=== PATIENT | female | born 1945 | race Caucasian/White ===

== ENCOUNTER → 2016-05-22 | Outpatient (CLI) | payer BC ==
[~2016-05-22] MED LIST: ALEN35TA2 PO; ASPI81TA28 PO; CALC-220 PO; CHOL1000 PO; COEN100C15 PO; COLON HEALTH PO; CYAN500T13 PO; FRRG PO; LORA-554 PO; MAGN400T6 PO; MULT-506 PO; NEXIUM PO; OMEG10007 PO; PSEUDOEPHEDRINE PO; REDCAP2 PO; WARF2TAB PO; ZINC PO
--- NOTE | 2016-05-22 12:51 | MAMMOGRAPHY REPORT ---
BILATERAL DIGITAL SCREENING MAMMOGRAM WITH CAD: 05/22/2016 CLINICAL HISTORY: Routine screening. Patient has no complaints. TECHNIQUE: Current study was also evaluated with a Computer Aided Detection (CAD) system. Bilatera l CC and MLO views were obtained. COMPARISON: Comparison is made to exams dated: 11/29/2012 mammogram, 10/02/2011 mammogram, 10/02/2010 mammogram, and 09/18/2010 mammogram - [facility]. BREAST COMPOSITION: The tissue of both breasts is heterogeneously dense, which may obscure small ma sses. FINDINGS: No suspicious masses, calcifications, or areas of architectural distortion are noted in e ither breast. There has been no significant interval change compared to prior exams. IMPRESSION: ACR BI-RADS CATEGORY 1: NEGATIVE There is no mammographic evidence of malignancy. A 1 year screening mammogram is recommended. The p atient will receive written notification of the results. Approximately 10% of breast cancers are not detected with mammography. A negative mammographic repor t should not delay biopsy if a clinically suggestive mass is present. Lou Galeana M.D. ah/:05/22/2016 10:37:41 Marketing Officer: Cecelia Ibrahim [facility] letter sent: Normal 1/2 BI-RADS Code: ACR BI-RADS Category 1: Negative
== END | disposition home or self-care (01) ==
LOC: C.MAMM 09:01
PROVIDERS: ATTEND Nurse Practitioner Family
DX: Z12.31 Encounter for screening mammogram for malignant neoplasm of breast (principal)

== ENCOUNTER → 2016-08-07 | Outpatient (CLI) | payer BC ==
[2016-08-07 13:24] LABS: URINE APPEARANCE CLEAR (CLEAR); URINE BILIRUBIN NEG (NEG); URINE COLOR YELLOW; URINE NITRITE NEG (NEG); URINE PH 7.5 (4.5-7.5); URINE SPECIFIC GRAVITY 1.005 (1.000-1.030); UROBILINOGEN NEG (NEG)
[2016-08-07 13:30] LABS: MANUAL MICROSCOPIC REQUIRED? NO; REVIEW REQ? NO
[2016-08-07 13:40] LABS: BLOOD UREA NITROGEN 19 mg/dl (7-18); BUN/CREATININE RATIO 15.7 (10-20); CALCIUM 10.2 mg/dl (8.5-10.1); CARBON DIOXIDE 30 mmol/L (21-32); CHLORIDE 105 mmol/L (98-107); GLUCOSE 87 mg/dl (70-99); MAGNESIUM 2.1 mg/dl (1.8-2.4); PHOSPHORUS 3.2 mg/dl (2.5-4.9); POTASSIUM 4.4 mmol/L (3.5-5.1); SODIUM 140 mmol/L (136-145)
[2016-08-07 13:58] LABS: URINE TOTAL PROTEIN < 5.0 mg/dl (0-11.9)
== END | disposition home or self-care (01) ==
LOC: C.LAB1850 11:51
PROVIDERS: ATTEND Internal Medicine Nephrology
DX: N18.3 Chronic kidney disease, stage 3 (moderate) (principal); E55.9 Vitamin D deficiency, unspecified

== ENCOUNTER → 2016-11-17 | Outpatient (CLI) | payer BC | END | disposition home or self-care (01) | LOC: C.MAMM 14:40 | PROVIDERS: ATTEND Nurse Practitioner Family | DX: Z13.820 Encounter for screening for osteoporosis (principal); M85.852 Other specified disorders of bone density and structure, left thigh ==

== ENCOUNTER → 2016-12-17 | Outpatient (CLI) | payer BC ==
--- NOTE | 2016-12-17 11:07 | DIAGNOSTIC IMAGING REPORT ---
AP PELVIS AND FROG LEG LATERAL VIEWS OF THE BILATERAL HIPS CLINICAL HISTORY: BILATERAL HIP PAIN COMPARISON STUDY: Pelvis 02/18/2015. FINDINGS: There is again noted a right total hip arthroplasty. The hardware appears intact. No abnormal periprosthetic lucency. No fracture or dislocation within the pelvis or hips. Soft tissues are unremarkable. Mild osteoarthritis within the bilateral sacroiliac joints and left hip. IMPRESSION: 1. No acute fracture or dislocation within the pelvis or hips. 2. Right total arthroplasty. The hardware is intact. 3. Mild osteoarthritis within the left hip. Electronically signed by: Robert Vides M.D. 12/17/2016 11:06 AM Dictated Date/Time: 12/17/2016 11:03 AM
== END | disposition home or self-care (01) ==
LOC: C.RDSM 13:10
PROVIDERS: ATTEND Physician Assistant
DX: Z96.641 Presence of right artificial hip joint (principal)

== ENCOUNTER 2020-12-11 06:49 | Observation (INO) ==
--- NOTE | 2020-11-15 14:29 | PAT Medication Instructions ---
Medication Instructions Date of Service November 15, 2020 Home Medications multivitamin 1 tab PO QAM pseudoephedrine HCl 30 mg tablet (Sudafed) 30 mg PO DIRECTED PRN lactobacillus combination no.4 3 billion cell capsule (Probiotic) 0 mmu cells PO BID omega-3 fatty acids 1,000 mg capsule (Fish Oil Concentrate) 1,000 mg PO QAM aspirin 81 mg tablet,delayed release 81 mg PO QAM cholecalciferol (vitamin D3) 25 mcg (1,000 unit) tablet (Vitamin D3) 25 mcg PO QAM acetaminophen 500 mg capsule 1,000 mg PO Q6H PRN fexofenadine 180 mg tablet 180 mg PO DAILY PRN ibuprofen 200 mg tablet 600 mg PO QAM ASK your surgeon for instructions ibuprofen 200 mg tablet 600 mg PO QAM STOP taking 2 weeks before surgery (or as soon as possible if surgery is within 2 weeks) omega-3 fatty acids 1,000 mg capsule (Fish Oil Concentrate) 1,000 mg PO QAM DO NOT take the morning of surgery multivitamin 1 tab PO QAM pseudoephedrine HCl 30 mg tablet (Sudafed) 30 mg PO DIRECTED PRN lactobacillus combination no.4 3 billion cell capsule (Probiotic) 0 mmu cells PO BID cholecalciferol (vitamin D3) 25 mcg (1,000 unit) tablet (Vitamin D3) 25 mcg PO QAM fexofenadine 180 mg tablet 180 mg PO DAILY PRN Take morning of surgery With a small sip of water, OTHERWISE NOTHING TO EAT OR DRINK AFTER MIDNIGHT: acetaminophen 500 mg capsule 1,000 mg PO Q6H PRN (okay to take up to 4 hours prior to surgery if needed) Take evening before surgery pseudoephedrine HCl 30 mg tablet (Sudafed) 30 mg PO DIRECTED PRN (if needed) lactobacillus combination no.4 3 billion cell capsule (Probiotic) 0 mmu cells PO BID acetaminophen 500 mg capsule 1,000 mg PO Q6H PRN (if needed) fexofenadine 180 mg tablet 180 mg PO DAILY PRN (if needed) Other Notes If you have any questions please call us at [phone] or [phone] or [phone] or [phone]
--- NOTE | 2020-11-19 13:25 | Anesthesiology Consultation ---
Date of Service November 19, 2020 Assessment & Plan (1) Encounter for pre-operative examination: - COVID screening: Per assessment on 11/19: Travel screen negative, no known COVID-19 positive contacts or current COVID-19 related symptoms. Surgeon arranging preop COVID testing. Awaiting results. - S/P Colonoscopy (09/18/20): MAC at [facility] Chart Review Chart Review: Acceptable Risk for Surgery (pending surgeon-ordered PCP clearance) and Patient seen in Pre Admission Testing Teaching & Discussion Pre-Anesthesia Teaching/Discussion Notes: Instructed NPO after midnight before surgery,except medications with 15 cc of water. Medication instructions provided according to the PAT guidelines. History Surgery Operation Date: 12/11/20 07:00 Proposed Procedures p Left Total Hip Arthroplasty - Senthil Matos MD Height/Weight Height: 5 ft 3 in Weight: 66 kg Allergies Allergy/AdvReac Type Severity Reaction Status Date / Time isosorbide Allergy Intermediate Rash Verified 11/19/20 13:19 citalopram Allergy Mild Rash Verified 11/19/20 13:19 raloxifene AdvReac Severe Leg pain Verified 11/19/20 13:19 caffeine AdvReac Intermediate Heart Verified 11/19/20 13:19 palpitations ENVIRONMENTAL Allergy Intermediate Itchy Uncoded 11/19/20 13:19 eyes, sneezing, congestion Medications Home Medications Medication Instructions Recorded Confirmed Last Taken multivitamin 1 tab PO QAM 03/20/18 11/13/20 09/16/20 pseudoephedrine HCl 30 mg tablet 30 mg PO DIRECTED PRN 03/20/18 11/13/20 09/16/20 (Sudafed) lactobacillus combination no.4 3 0 mmu cells PO BID 09/04/19 11/13/20 09/16/20 billion cell capsule (Probiotic) omega-3 fatty acids 1,000 mg 1,000 mg PO QAM 06/26/20 11/13/20 09/16/20 capsule (Fish Oil Concentrate) aspirin 81 mg tablet,delayed 81 mg PO QAM 06/27/20 11/13/20 09/16/20 release cholecalciferol (vitamin D3) 25 25 mcg PO QAM 09/12/20 11/13/20 09/16/20 mcg (1,000 unit) tablet (Vitamin D3) acetaminophen 500 mg capsule 1,000 mg PO Q6H PRN 11/13/20 11/13/20 Unknown fexofenadine 180 mg tablet 180 mg PO DAILY PRN 11/13/20 11/13/20 Unknown ibuprofen 200 mg tablet 600 mg PO QAM 11/13/20 11/13/20 Unknown Past Medical History Medical History Chronic anemia Chronic cough dx as r/t allergies/GERD GERD (gastroesophageal reflux disease) Controlled Hiatal hernia History of gastric ulcer Kidney disease Creatinine WNL on most recent 11/2020 labs Liver cyst Migraine Hx Osteoarthritis Osteopenia Spinal stenosis TMJ (temporomandibular joint disorder) Remote locking (no locking x 30 years) Exercise / Class Metabolic Activity II 4-5 Yardwork/Stairs/Walk up hill (one FS (no CP, no SOB)) Past Family History Family History Mother Diabetes Other Allergies Asthma Cancer Family history non-contributory Heart disease No family history of adverse response to anesthesia Denies family history of Tuberculosis Emphysema, unspecified Lung disease Past Surgical History Surgical History History of appendectomy History of cardiac catheterization 2004 > no stents History of cholecystectomy History of colonoscopy Colonoscopy (09/18/20): MAC at [facility] History of esophageal dilatation History of esophagogastroduodenoscopy (EGD) History of total hip arthroplasty Right History of tubal ligation Past Anesthesia History No Hx of Anesthesia Complications and No Family Hx of Anesthesia Complications History of PONV No Hx of PONV and No Hx of Motion Sickness Social History Smoking Status: Former smoker Do You Dip or Chew Tobacco: No Smoking End Date: Quit 1991 Hx Alcohol Use: Yes Alcohol type: beer alcohol intake frequency: a few times a month Hx Substance Use: No substance use type: does not use Review of Systems Chronic dry cough, unchanged- dx as r/t reflux/allergies. Patient denies chest pain, shortness of breath, dyspnea on exertion, fever, chills, wheezing, palpitations. Physical Exam Vital Signs VITALS BP 130/75 P 73 TEMP 97.8 SP02 98%RA RESP 16 PHYSICAL Full cervical extension range of motion. Full TMJ range of motion. TMD 3 finger breaths Mallampati Score 2 Dentition: lower front missing Lungs: clear throughout to auscultation Cardiac: regular rate and rhythm, no murmurs noted Spine: normal Carotid arteries: negative bruit Extremities: no edema Lab Results Anesthesia Preop Results Results Anesthesia Widget: WBC 6.93 K/uL (4.8-10.8) 11/19/20 Hgb 10.4 g/dL (12.0-16.0) L 11/19/20 Hct 32.1 % (37-47) L 11/19/20 Plt 475 K/uL (130-400) H 11/19/20 Na 138 mmol/L (136-145) 11/19/20 K 3.7 mmol/L (3.5-5.1) 11/19/20 Cl 108 mmol/L (98-107) H 11/19/20 CO2 26 mmol/L (21-32) 11/19/20 BUN 22 mg/dl (7-18) H 11/19/20 Creat 1.13 mg/dl (0.6-1.2) 11/19/20 Glucose Level 119 mg/dl (70-99) H 11/19/20 PT 10.2 Seconds (9.0-12.0) 11/19/20 PTT 26.6 Seconds (21.0-31.0) 11/19/20 INR 1.0 (0.9-1.1) 11/19/20 Urine Color Yellow 11/19/20 Urine Appearance Cloudy (Clear) A 11/19/20 Urine pH 6.5 (4.5-7.5) 11/19/20 Urine Specific [place] 1.009 (1.000-1.030) 11/19/20 Urine Protein Negative (Negative) 11/19/20 Urine Glucose (UA) Negative (Negative) 11/19/20 Urine Ketones Negative (Negative) 11/19/20 Urine Blood Trace (Negative) H 11/19/20 Urine Nitrite Negative (Negative) 11/19/20 Urine Bilirubin Negative (Negative) 11/19/20 Urine Urobilinogen Negative (Negative) 11/19/20 Urine Leukocyte Esterase Negative (Negative) 11/19/20 Urine WBC (Auto) 1-5 /hpf (0-5) 11/19/20 Urine RBC (Auto) 0-4 /hpf (0-4) 11/19/20 Urine Hyaline Casts (Auto) 0 /lpf (0-5) 11/19/20 Urine Epithelial Cells (Auto) 5-10 /lpf (0-5) H 11/19/20 Urine Bacteria (Auto) 1+ (Negative) H 11/19/20 Urine Yeast Not Reportable 11/19/20 Blood Type O Negative 11/19/20 Antibody Screen NEGATIVE 11/19/20 Lab Comments: Chronic anemia with comparison hgb 05/22/20 10.3. Preop labs stable at 10.4. Testing Electrocardiogram Date: 11/19/20 NSR at 68bpm. unconfirmed report. Chest X-Ray Date: 03/22/20 FINDINGS: The heart is normal in size. There is no failure. There is no focal pulmonary consolidation. There are no pleural effusions. There is a gas containing retrocardiac opacity consistent with a hiatal hernia. IMPRESSION: Hiatal hernia. No active disease in the chest.
--- NOTE | 2020-12-03 10:59 | History & Physical Report ---
Date of Service December 03, 2020 Assessment & Plan (1) Primary osteoarthritis of left hip: Plan: t this time, she is scheduled for an elective left total hip arthroplasty with Dr. Matos on December 11, 2020. Risks and complications of the procedure were explained to the patient and include, but are not limited to infection, pain, bleeding, scarring, nerve and blood vessel damage, wound problems, weakness, stiffness, incomplete relief of symptoms, tendon or ligament injury, leg length discrepancy, dislocation risks, fracture, hardware failure, loosening or wear, blood clots, embolisms, heart attack, stroke, and . All questions were answered and informed consent will be obtained at the time of her surgery. She was instructed to be n.p.o. the night before surgery as well as to call the day ahead for her surgical time. She is aware of the COVID-19 risk, is currently asymptomatic of any COVID-19 symptoms, and will undergo COVID-19 testing on December 09, 2020, in preparation for her surgery. She was instructed on usage of CHG cloths prior to surgery. Postoperative course was discussed. She would like to go home with home health and physical therapy if necessary. She does have a cane and a walker to use at home. She will be prescribed p ostoperative pain medication at the time of her surgery. All questions were answered. She knows to call with any further problems, questions, or concerns. She will have preadmission testing later today in which we will obtain a preoperative CBC, BMP, PT, PTT, UA and culture if necessary, EKG, and chest x- ray. All questions were answered. History of Present Illness Chief Complaint: Left hip pain. Primary Care Provider: ABBIE Palmer The patient is a pleasant 75-year-old female who is here today with her daughter for a preoperative history and physical. She is scheduled to have a left total hip arthroplasty by Dr. Matos on December 11, 2020. She has been having left hip pain for many months and had a right total hip replacement, which has been successful, approximately 5 years ago. She started having worsening pain over the last 6 months to the point where she has pain on a daily basis. She does need to use a cane to assist with ambulation. She states that most of her pain is on the inner aspect of her leg and her groin. She did have an adductor injection of cortisone, which only helped temporarily. She also was referred to Physical Therapy with no significant relief. She had an MRI of her left hip. Her MRI showed significant osteoarthritic change with loss of articular cartilage of the femoral head with almost an inch in diameter with significant edema in the femoral head suggesting AVN with no evidence of fracture. Due to her progressively worsening symptoms and failure of conservative treatment which consisted of cortisone injections, outpatient physical therapy, and oral anti-inflammatories, she wishes to proceed with an elective left total hip replacement. Allergies Allergy/AdvReac Type Severity Reaction Status Date / Time isosorbide Allergy Intermediate Rash Verified 11/19/20 13:19 citalopram Allergy Mild Rash Verified 11/19/20 13:19 raloxifene AdvReac Severe Leg pain Verified 11/19/20 13:19 caffeine AdvReac Intermediate Heart Verified 11/19/20 13:19 palpitations ENVIRONMENTAL Allergy Intermediate Itchy Uncoded 11/19/20 13:19 eyes, sneezing, congestion Home Medications Medication Instructions Recorded Confirmed Type multivitamin 1 tab PO QAM 03/20/18 11/13/20 History pseudoephedrine HCl 30 mg tablet 30 mg PO DIRECTED PRN 03/20/18 11/13/20 History (Sudafed) lactobacillus combination no.4 3 0 mmu cells PO BID 09/04/19 11/13/20 History billion cell capsule (Probiotic) omega-3 fatty acids 1,000 mg 1,000 mg PO QAM 06/26/20 11/13/20 History capsule (Fish Oil Concentrate) aspirin 81 mg tablet,delayed 81 mg PO QAM 06/27/20 11/13/20 History release cholecalciferol (vitamin D3) 25 25 mcg PO QAM 09/12/20 11/13/20 History mcg (1,000 unit) tablet (Vitamin D3) acetaminophen 500 mg capsule 1,000 mg PO Q6H PRN 11/13/20 11/13/20 History fexofenadine 180 mg tablet 180 mg PO DAILY PRN 11/13/20 11/13/20 History ibuprofen 200 mg tablet 600 mg PO QAM 11/13/20 11/13/20 History Past Med/Surg History Medical History Chronic anemia Chronic cough dx as r/t allergies/GERD GERD (gastroesophageal reflux disease) Controlled Hiatal hernia History of gastric ulcer Kidney disease Creatinine WNL on most recent 11/2020 labs Liver cyst Migraine Hx Osteoarthritis Osteopenia Spinal stenosis TMJ (temporomandibular joint disorder) Remote locking (no locking x 30 years) Surgical History History of appendectomy History of cardiac catheterization 2005 > no stents History of cholecystectomy History of colonoscopy Colonoscopy (09/18/20): MAC at [facility] History of esophageal dilatation History of esophagogastroduodenoscopy (EGD) History of total hip arthroplasty Right History of tubal ligation Family History Mother Diabetes Other Allergies Asthma Cancer Family history non-contributory Heart disease No family history of adverse response to anesthesia Denies family history of Tuberculosis Emphysema, unspecified Lung disease Social History (Updated 11/13/20 @ 11:17 by Mulu Miller RN) Smoking Status: Former smoker Tobacco Type: Cigarettes packs per day: 0.25; Years Smoked: 1; Second Hand Exposure: Yes (SPOUSE SMOKED); Hx Alcohol Use: Yes Alcohol type: beer Hx Substance Use: No Preferred Language: Maldivian Communication Ability: Effective It Sales Consultant Required: No Beliefs That Will Affect Care: None Current Living Situation: Family Current Living Situation Comment: dtr lives with pt current occupational status: retired Feels Safe at Home: Yes Assistive Devices: Cane and Glasses Review of Systems Review of Systems: She denies any recent cough, colds, fevers, chills, or flu- like symptoms. Denies any lightheadedness, dizziness, headaches, migraine, seizures, or syncopal episodes. She states that she did have a slight bit of dizziness yesterday and it only lasted for a few seconds. She states that her eye went cross-eyed and then it went back to normal. She had no change in her vision. She denies any history of metal sensitivity, MRSA, or latex allergy. She denies any chest pain or shortness of breath. Denies any abdominal pain, heartburn, indigestion, nausea, vomiting, diarrhea, or constipation. Denies any numbness or tingling in her left leg. Denies any hearing or vision changes. Denies any dental problems although she recently lost her front tooth with no injury. She states it just became loose and fell out. She denies any history of urinary tract infections, foul-smelling urine, or burning with urination today. Physical Exam Physical Exam: General: She is alert and oriented x3. She is in no acute distress. Well-dressed, well-nourished female. Normal mood and affect. Height 161.5 cm, weight is 66.1 kg, and BMI is 25.34. Vital Signs: Temperature is 36.5 degrees Celsius, blood pressure is 124/82, heart rate is 60 beats per minute, oxygenation on room air is 99%, and pain is 6/10. HEENT: Head; atraumatic, normocephalic. Eyes; extraocular movements intact. Pupils equal, round, and reactive to light. Sclerae are normal. Ears; hearing is grossly normal. TMs are clear with normal light reflex. Nose; nares are patent bilaterally. Throat; oropharynx is clear. Mucous membranes are moist. Good dentition. She is missing her front right tooth. Gums are benign. Uvula midline. Neck: Supple. No lymphadenopathy. Nontender to palpation. Full range of motion. Lungs: Clear to auscultation bilaterally. No adventitious sounds. No accessory muscle use. Heart: Regular rate and rhythm. Normal S1 and S2. No murmurs, rubs, or gallops appreciated. Abdomen: Soft, nontender, and nondistended. Normal bowel sounds heard in all 4 quadrants. Musculoskeletal: Exam of her left hip; she has painful range of motion of her left hip with internal and external rotation. She is able to independently straight leg raise. She does ambulate with an antalgic gait with the assistance of a cane. She has no visible obvious asymmetry or deformity. She tolerates hip flexion to 110 degrees. She does have significant groin and lateral leg pain with internal and external rotation of her hip. Range of motion is limited with internal rotation of less than 5 degrees and external rotation to only about 5 to 10 degrees. Gross sensation is intact. Distal pulses are 1+. Skin is healthy with no distal edema. Results & Data Results & Data ([facility]) Diagnostic Findings New x-rays of her left hip were obtained today and show end-stage [id number] arthritis of her left femoroacetabular joint with some subchondral cystic and sclerosis changes as well as osteophyte formation. MRI also noted from July which shows severe end-stage osteoarthritis of her lef t hip. Report is noted.
--- NOTE | 2020-12-11 06:33 | History & Physical Bridge Note ---
Date of Service December 11, 2020 History & Physical Bridge Note I have examined the patient, reviewed the History & Physical and in the interval since the performance of the History & Physical I have noted the following changes of clinical significance:consent obtained/site verified/covid screen negative. no changes noted
[~2020-12-11 06:49] MED LIST changes: -ALEN35TA2 PO; -ASPI81TA28 PO; +BUPIVACAINE 0.5 % 5 MG/1 ML PF 10ML VIAL ONE; -CALC-220 PO; -CHOL1000 PO; -COEN100C15 PO; -COLON HEALTH PO; -CYAN500T13 PO; -FRRG PO; -LORA-554 PO; +LR 500ML BOLUS, THEN 15ML/HR IV SCH; +LR 60ML/HR IV SCH; -MAGN400T6 PO; -MULT-506 PO; -NEXIUM PO; -OMEG10007 PO; -PSEUDOEPHEDRINE PO; -REDCAP2 PO; +ROPIVACAINE 0.5% HCL/PF 150 MG, BUPIVACAINE 0.75% MPF 20 ML, EPINEPHrine 0.15 MG, Ketor... INFIL SCH; +TRANEXAMIC ACID 1,000 MG **IV Pre-op IV SCH; -WARF2TAB PO; -ZINC PO; +ceFAZolin 2000MG 2,000 MG/15 ML SYR IV SCH
[2020-12-11] MEDS ORDERED: MIDAZOLAM HCL 1 MG/ML 2ML VIAL ONE (07:41)
[2020-12-11] MEDS ORDERED: HYDROmorphone INJ 1 MG/ML SYRINGE IV PRN (08:19)
[2020-12-11] MEDS ORDERED: ONDANSETRON INJ 2 MG/ML 2 ML VIAL IV PRN ×2 (08:19→14:52)
[2020-12-11] MEDS ORDERED: ATROPINE SULFATE 0.1 MG/ML 10ML SYR IV PRN (08:19)
[2020-12-11] MEDS ORDERED: ePHEDrine sulfate 50 MG/ML AMP IV PRN (08:19)
[2020-12-11] MEDS ORDERED: ORTHO JOINT ANESTHETIC ONE (09:01)
[2020-12-11] MEDS ORDERED: PROPOFOL IV EMULSION 10 MG/ML 20 ML VIAL IV ONE (09:33)
[2020-12-11] MEDS ORDERED: ePHEDrine sulfate 50 MG/ML SYR ONE (09:56)
[2020-12-11] MEDS ORDERED: PHENYLEPHRINE 100MCG/ML 5ML SYR ONE (09:56)
[2020-12-11] MEDS ORDERED: KETAMINE 50 MG/5 ML SYRINGE ONE (10:33)
--- NOTE | 2020-12-11 11:17 | Operative Report ---
Post Operative Report Pre & Post Diagnosis Operation Date: 12/11/20 08:50 Pre-Op Diagnosis: Left Hip Degenerative Joint Disease Post-Op Diagnosis: Left Hip Degenerative Joint Disease I identified the patient and participated in the time-out.: Yes Procedure Operation Date: 12/11/20 08:50 Actual Procedures p Left Total Hip Arthroplasty--Uncemented(Left) - Senthil Matos MD Surgeon Senthil Matos MD Electric Plater Callie Gonzalez Estimated Blood Loss 150 Findings Consistent with Post-Op Diagnosis see Dr. Matos note Specimens no specimens Description of Procedure see Dr. Matos note I attest to the content of the Intraoperative Record and any orders documented therein. Any exceptions are noted below. Supervising Physician Co-Signing Physician Notes Wes Matos MD
--- NOTE | 2020-12-11 11:19 | Operative Report ---
Post Operative Report Pre & Post Diagnosis Operation Date: 12/11/20 08:50 Pre-Op Diagnosis: Left Hip Degenerative Joint Disease Post-Op Diagnosis: Left Hip Degenerative Joint Disease I identified the patient and participated in the time-out.: Yes Procedure Operation Date: 12/11/20 08:50 Actual Procedures p Left Total Hip Arthroplasty--Uncemented(Left) - Senthil Matos MD Surgeon RAFFY Matos MD Drain Tile Machine Operator Callie Gonzalez PA-C Estimated Blood Loss 150 Findings Consistent with Post-Op Diagnosis see operative report Specimens see operative report Drains none Complications none Disposition Accompanied Patient To Recovery: Yes Indications This 75-year-old female presented to the office with complaints of persisting left hip pain. She had tried conservative care measures without improvement. She elected to proceed with surgical intervention after being educated about potential risks and outcomes. Preoperative imaging was obtained. Description of Procedure Patient was administered a spinal anesthetic and then taken to the operating room where she was given sedation. She was prepped and draped in the usual sterile fashion. Please see Dr. Matos's operative report for specifics of the procedure. I was present for the entire case from initial patient positioning through final wound closure. Assistance was provided in tissue retraction, hemostasis, trial implant placement, final implant placement, and final wound closure. Patient was taken to the recovery room in satisfactory condition. I attest to the content of the Intraoperative Record and any orders documented therein. Any exceptions are noted below.
--- NOTE | 2020-12-11 11:37 | Operative Report (OR) ---
DATE OF PROCEDURE: 12/11/2020. SURGEON: Senthil Matos MD CERTIFIER: Adriana Courtney MD SECOND HARDWARE ENGINEERING MANAGER: Vic Tian PA-C PREOPERATIVE DIAGNOSIS: Osteoarthritis with hip dysplasia, left hip. POSTOPERATIVE DIAGNOSIS: Osteoarthritis with hip dysplasia, left hip. OPERATION PERFORMED: Noncemented left total hip replacement. PERIOPERATIVE SITUATION: Medically cleared female with intractable hip pain, x-rays reveal end-stage disease, has dysplasia as well as arthritis. Wants to proceed with surgical treatment. She underst ands the risks and consequences, had the other side done. Understands the risk for dislocation, DVT, PE, leg length inequality, etc. She was cleared by hematology for chronically anemic status. She m ay require transfusions or EPO. She understands that. DEEP VENOUS THROMBOSIS PROPHYLAXIS: Per protocol. DESCRIPTION OF PROCEDURE: The patient was appropriately identified, site verified, consent verified. Antibiotics were confirmed as being given. The left lower extremity was prepped and draped in usua l routine fashion with the patient in the right lateral decubitus position. The posterolateral appro ach to the hip was then made. Sharp dissection was carried through the skin, blunt dissection throug h the fascia. The IT band identified. This was then incised under direct vision. The retractor was then placed. The sciatic nerve was visualized, but not dissected. It was carefully protected with retractors. Short external rotators were released. The capsule was then teed and preserved. The la jesu excised. Hip dislocated. There was significant DJD. The femoral neck and head were then resec emrcy appropriately. The anterior capsule released and then the retractors placed. There were large o steophytes anteriorly and inferiorly. Looked like the cup was retroverted. The serial reaming was then carried out and then appropriate osteophytes resected. The reaming thania ed up to 50 to 50 cup, impacted into excellent anteversion and inclination. It had excellent rim fit and then a screw was placed 6.5 x 25 with excellent purchase. Trial liner was then seated. The fem ur was then flexed and internally rotated. Proximal femur prepared and rasped up to a 3. Multiple t rial reductions were carried out with a +9 and a +4 head liner. We got the most stability and leg le ngths to be very close. All these trial implants were then removed and then the wound irrigated. Th e hole eliminator seated, the permanent liner seated. Permanent head and stem seated. Hip reduced. Leg lengths were excellent. The hip was stable to 115 degrees of flexion with internal rotation to 10 degrees. With the hip flexed at 60-70 degrees and the leg internally rotated, it would not disloca te. As a result, all this was accepted. The wound was then irrigated and closed with the capsule cl osed with #2 Vicryl, short external rotators with #2 Vicryl, the IT band and gluteus missy fascia w ith #2 Vicryl, the deep fat with #2 Vicryl, subcutaneous layer with 2-0 Vicryl, and the skin with sta inless steel clips. Appropriate dressing applied. The patient was transferred to recovery room in s atisfactory condition, having tolerated the procedure well. EBL was roughly 150 mL. Crystalloid per anesthesia. SUMMARY OF IMPLANTS: Size 50 shell acetabular shell cup, hole eliminator, 6.5 x 25 screw, 32 x 50 +4 neutral liner, three standard Tri-Lock 32+9 ceramic head. ESTIMATED BLOOD LOSS: Again 150 mL. CRYSTALLOID: Per anesthesia. DEEP VENOUS THROMBOSIS PROPHYLAXIS: Per protocol. PATHOLOGY: Pending on bone. Job ID: [id number]
--- NOTE | 2020-12-11 11:44 | Progress Notes ---
SUBJECTIVE: Postop check status post left total hip replacement. The patient is doing well. Denies any chest pain, shortness of breath, fever, chills, nausea, vomiting or headache. OBJECTIVE: Vital signs are stable. She is afebrile. Wound dressing clean, dry and intact. Neurovascular check limited by spinal. Postop x-rays look excellent. ASSESSMENT: Doing well. PLAN: Continue postoperative care pathway. Usual postural indiscretion avoidances. DVT prophylaxis per protocol. Potential discharge to home tomorrow. Will need to check her hematocrit carefully as she started low. Job ID: [id number]
[2020-12-11] MEDS ORDERED: VANCOMYCIN HCL 1,000 MG in SODIUM CHLORIDE 0.9% 250 ML IV ONE (11:45)
--- NOTE | 2020-12-11 11:46 | Discharge Summary (DS) ---
DATE OF ADMISSION: 12/11/2020 DATE OF POTENTIAL DISCHARGE: 12/12/2020 CHIEF COMPLAINT: Left hip pain. HISTORY OF PRESENT ILLNESS: The patient underwent elective left total hip replacement. Hospital course to date has been uneventful. Postop x-rays look excellent. She denies any chest pain, shortness of breath, fever, chills, nausea, vomiting or headache. PAST MEDICAL HISTORY: Remarkable for chronic anemia, chronic cough, GERD, hiatal hernia, gastric ulc er, kidney disease, liver cyst, migraine headaches, osteoarthritis, osteopenia, spinal stenosis, TMJ. PAST SURGICAL HISTORY: Remarkable for appendectomy, cardiac catheterization, no stents, cholecystect ruben, colonoscopy, EGDs, total hip replacement on the right, tubal ligation. FAMILY HISTORY: Remarkable for diabetes, allergies, asthma, cancer, heart disease. Denies any other problems. SOCIAL HISTORY: Reveals that she is a former smoker of cigarettes. Drinks beer. Lives with her [facility]. She is retired. Feels safe at home. Uses cane and glasses. REVIEW OF SYSTEMS: Reveals no chest pain, shortness of breath, fever, chills, nausea, vomiting or he adache. Again, postoperative x-rays look excellent. ASSESSMENT: Status post left total hip replacement. Continue postoperative care pathway. Potential discharge tomorrow if she does well overnight. Job ID: [id number]
--- NOTE | 2020-12-11 11:54 | XRay Report ---
XR pelvis 1-2V routine CLINICAL HISTORY: Status post total left hip arthroplasty. COMPARISON: Pelvis and left hip radiographs November 19, 2020. FINDINGS: Alignment of the total left hip arthroplasty is anatomic. There is no periprosthetic fract ure or unexpected radiopaque foreign body. There are skin gustavo. A right hip arthroplasty is also n oted. IMPRESSION: Expected findings following total left hip arthroplasty. ACT 112: Negative or not required by law. Electronically signed by: Faheem Bonilla M.D. 12/11/2020 11:53 AM
--- NOTE | 2020-12-11 14:48 | Anesthesiology Progress Note ---
Date of Service December 11, 2020 Anesthesia Post Procedure Vital Signs Vital Signs: Temp Pulse Pulse Resp BP Pulse Ox 12/11/20 13:15 36.1 C L 71 18 120/86 96 12/11/20 12:46 36.1 C L 68 18 133/65 96 12/11/20 12:35 67 18 134/67 96 12/11/20 12:20 67 16 129/79 99 12/11/20 12:05 67 19 113/62 100 12/11/20 11:50 36.1 C L 69 14 115/71 99 12/11/20 11:40 68 14 110/61 100 12/11/20 11:30 68 20 115/57 L 100 12/11/20 11:20 73 14 102/58 L 100 12/11/20 11:14 36.4 C L 79 15 100/53 L 99 12/11/20 07:34 36.9 C 91 H 20 171/85 H 98 Pain Intensity Left Hip: Pain Intensity: 5 Transfer of Care Handoff Completed per policy Notes Mental Status: alert / awake / arousable Patient Amnestic to Procedure: Yes Nausea / Vomiting: adequately controlled Pain: adequately controlled Airway Patency, RR, SpO2: stable & adequate BP & HR: stable & adequate Hydration State: stable & adequate Neuraxial Anesthesia: was administered and sensory block is resolving Anesthetic Complications: no major complications apparent
[2020-12-11] MEDS ORDERED: METOCLOPRAMIDE HCL INJ 5 MG/ML 2 ML VIAL IV PRN (14:52)
[2020-12-11] MEDS ORDERED: PSEUDOEPHEDRINE HCL 30 MG TAB PO PRN ×2 (14:52→15:21)
[2020-12-11] MEDS ORDERED: MAGNESIUM HYDROXIDE SUSP 30 ML UDC PO PRN (14:52)
[2020-12-11] MEDS ORDERED: HYDROmorphone INJ 0.5 MG/0.5 ML SYR IV PRN (14:52)
[2020-12-11] MEDS ORDERED: oxyCODONE HCL IR 5 MG TAB (IMMEDIATE RELEASE) PO PRN (14:52)
[2020-12-11] MEDS ORDERED: ALUMINUM/MAGNESIUM SUSP 30 ML UDC PO PRN (14:52)
[2020-12-11] MEDS ORDERED: bisacodyL 10 MG SUPP PR PRN (14:52)
[2020-12-11] MEDS ORDERED: FEXOFENADINE HCL 180 MG TAB PO PRN (14:52)
[2020-12-11] MEDS ORDERED: diphenhydrAMINE 50 MG/ML VIAL IV PRN (14:52)
[2020-12-11] MEDS ORDERED: NALOXONE HCL 0.4 MG/1 ML VIAL/CARP IV PRN (14:52)
[2020-12-11] MEDS ORDERED: ORTHO WARFARIN NOMOGRAM SCH (14:52)
[2020-12-11] MEDS ORDERED: WARFARIN SOD 5 MG TAB PO ONE (16:00)
[2020-12-11] MEDS: ceFAZolin 2000MG 2,000 MG/15 ML SYR IV SCH (16:33)
[2020-12-11] MEDS: ASCORBIC ACID 500 MG TAB PO SCH (16:34)
[2020-12-11] MEDS: FERROUS GLUCONATE 324 MG TAB PO SCH (16:34)
[2020-12-11] MEDS: ACETAMINOPHEN 500 MG TAB PO SCH ×2 (16:34→23:43)
[2020-12-11] MEDS: SODIUM CHLORIDE 0.9% 1000ML 1,000 ML IV SCH (17:18)
[2020-12-11] MEDS: KETOROLAC TROMETHAMINE 15 MG/ML VIAL IV SCH ×2 (18:00→23:48)
[2020-12-11] MEDS ORDERED: TRANEXAMIC ACID / 0.7% NACL 1,000 MG/100 ML BAG IV SCH (18:00)
[2020-12-11 19:12] LABS: Hematocrit (blood only) 28.8 % (37-47); Hemoglobin 9.3 g/dL (12.0-16.0)
[2020-12-11] MEDS ORDERED: SENNA 8.6 MG TAB PO SCH (21:00)
[2020-12-11] MEDS: DOCUSATE SODIUM 100 MG CAP PO SCH (21:30)
[2020-12-12] MEDS: SODIUM CHLORIDE 0.9% 1000ML 1,000 ML IV SCH (01:18)
[2020-12-12] MEDS: ceFAZolin 2000MG 2,000 MG/15 ML SYR IV SCH (02:17)
[2020-12-12 06:33] LABS: Basophils # (auto) 0.01 K/uL (0-0.2); Basophils % (auto) 0.1 %; Eosinophils # (auto) 0.01 K/uL (0-0.5); Eosinophils % (auto) 0.1 %; Hematocrit (blood only) 27.5 % (37-47); Immature Granulocytes # (auto) 0.01 K/uL (0.00-0.02); Immature Granulocytes % (auto) 0.1 %; Lymphocytes # (auto) 1.08 K/uL (1.2-3.4); Lymphocytes % (auto) 15.4 %; Mean Corpuscular Hemoglobin 29.6 pg (25-34); Mean Corpuscular Hgb Conc 32.7 g/dL (32-36); Mean Corpuscular Volume 90.5 fL (80-100); Mean Platelet Volume 8.3 fL (7.4-10.4); Monocytes # (auto) 0.43 K/uL (0.11-0.59); Monocytes % (auto) 6.1 %; Neutrophils # (auto) 5.48 K/uL (1.4-6.5); Neutrophils % (auto) 78.2 %; Platelet Count 369 K/uL (130-400); RDW Coefficient of Variation 14.3 % (11.5-14.5); RDW Standard Deviation 47.6 fL (36.4-46.3); Red Blood Count 3.04 M/uL (4.2-5.4); White Blood Count 7.02 K/uL (4.8-10.8)
[2020-12-12] MEDS: KETOROLAC TROMETHAMINE 15 MG/ML VIAL IV SCH ×2 (06:33→10:49)
[2020-12-12 06:46] LABS: INR 1.1 (0.9-1.1); Prothrombin Time 11.2 Seconds (9.0-12.0)
[2020-12-12 07:04] LABS: BUN Creatinine Ratio 23.7 (10-20); Calcium 9.1 mg/dl (8.5-10.1); Creatinine Clr Calc Pharmacy 42.1 ml/min; Est GFR (African American) 61.9 ml/min; Est GFR (Non-African American) 53.4 ml/min; Potassium 4.4 mmol/L (3.5-5.1)
[2020-12-12] MEDS: ACETAMINOPHEN 500 MG TAB PO SCH (07:27)
[2020-12-12] MEDS: FERROUS GLUCONATE 324 MG TAB PO SCH (07:28)
[2020-12-12] MEDS: DOCUSATE SODIUM 100 MG CAP PO SCH (07:28)
[2020-12-12] MEDS: ASCORBIC ACID 500 MG TAB PO SCH (07:28)
--- NOTE | 2020-12-12 07:33 | Orthopedic Progress Note ---
Date of Service December 12, 2020 Assessment & Plan (1) Status post total hip replacement, left: Plan: Postsurgical dressing was changed by me. Written discharge instructions were provided. She will receive a Coumadin dose here today before discharge. Continue Coumadin 4 mg daily over the weekend and have her blood rechecked on Wednesday. Anticipate discharge to home later this morning with home health services. Prescriptions for Coumadin and Percocet have been sent to her [facility] pharmacy Continue ambulation with her walker. Follow-up in the office in 2 weeks as scheduled for staple removal Admission and Anticipated Discharge Date Admission Date: December 11, 2020 Subjective Patient is seen in her room this morning. States she did well overnight. She denies any chest pain, shortness of breath, nausea, vomiting, or abdominal pain. No significant hip pain. She is already out of bed and sitting in a chair. Review of Systems Review of Systems: unchanged from yesterday Physical Exam Physical Exam: General: Well-developed, well-nourished, elderly white female, in no acute distress. Sitting in a chair. Alert and oriented. Conversive. Skin: Warm and dry with good turgor. No rashes or lesions. Patient has a healing surgical incision on her left hip. Postsurgical dressings are intact. Upon removal, there is scant dried drainage on her dressings. No active bleeding from her surgical site. No ecchymosis or edema. Musculoskeletal: Patient has intact motor function of her left hip, knee, and ankle. She rises fairly easily from the chair and is able to stand on her own. Neurologic: Gross sensation is intact across the left leg by soft touch. Peripheral pulses are 2+. Results & Data ([facility]) Vital Signs (Past 12 Hours) Vital Signs Temp Pulse Resp BP Pulse Ox 12/12/20 07:13 36.5 C 75 16 132/76 98 12/12/20 07:11 36.5 C 75 16 132/76 98 12/12/20 02:48 36.5 C 75 16 132/76 98 12/11/20 22:00 36.7 C 78 16 154/77 H 97 Laboratory Results H&H obtained last night was 9.3 and 28.8. CBC obtained this morning shows a white count of 7.0. Hemoglobin of 9.0 and hematocrit of 27.5. INR this morning is 1.1. Sodium 139, potassium 4.4, chloride 110, BUN 24, creatinine 1.02. Glucose 117
[2020-12-12] MEDS ORDERED: dexAMETHasone 10 MG in SYRINGE 0 ML IV SCH (08:00)
--- NOTE | 2020-12-12 08:41 | Progress Notes ---
DATE OF NOTE: 12/12/2020 SUBJECTIVE: The patient is doing well status post left total hip replacement. She is sitting up in bed. She walked down the lambert last night. She denies any shortness of breath, chest pain, fever or chills. She denies any lightheadedness. She ate well, drink well. She is voiding. OBJECTIVE: VITAL SIGNS: Stable. She is afebrile. NEUROVASCULAR CHECK: Femoral sciatic nerve is normal. EXTREMITIES: Calves nontender. Wound dressing clean, dry and intact. LABORATORY DATA: Hematocrit stable at 27.5. INR is 1.1. ASSESSMENT: Doing well. Discharged to home today. Coumadin dose per nomogram. Job ID: [id number]
[2020-12-12] MEDS ORDERED: ASPIRIN 81 MG ECTAB PO SCH (09:00)
[2020-12-12] MEDS ORDERED: MULTIVITAMIN TAB PO SCH (09:00)
[2020-12-12] MEDS ORDERED: WARFARIN SOD 5 MG TAB PO STA (10:39)
== END 2020-12-12 11:45 | disposition home health service (06) ==
LOC: ASU 06:49 → PACUINP 06:49 → 3E 15:01